=== PATIENT | female | born 1940 | race Caucasian/White ===

== ENCOUNTER 2019-12-22 08:40 | Outpatient (CLI) | payer MEDICARE ==
[~2019-12-22 08:40] MED LIST: ANAS1TAB49 PO; CHOL400T57 PO; COQ10; DULO60CA45 PO; LEVO88TA39 PO; NEBI5TAB10 PO; OMEP-50 PO; OSC500T PO; SIMV10TA2 PO; TURMERIC; UMEC1DIS INH; VITAMIN C
== END 2019-12-22 23:59 | disposition home or self-care (01) ==
LOC: 64 CT 08:40
PROVIDERS: ATTEND Surgery
DX: K21.9 Gastro-esophageal reflux disease without esophagitis (principal); J98.11 Atelectasis; M41.85 Other forms of scoliosis, thoracolumbar region; M19.012 Primary osteoarthritis, left shoulder; M19.011 Primary osteoarthritis, right shoulder; M47.819 Spondylosis without myelopathy or radiculopathy, site unspecified; M95.4 Acquired deformity of chest and rib; K76.89 Other specified diseases of liver; I70.0 Atherosclerosis of aorta; I25.10 Atherosclerotic heart disease of native coronary artery without angina pectoris
CPT/HCPCS: 71250; 74220

== ENCOUNTER 2020-08-24 05:34 | Inpatient (IN) | payer MEDICARE ==
[2020-08-15 16:11] LABS: BASOPHILS # (AUTO) 0.1 X10'3 (0-0.2); BASOPHILS % (AUTO) 0.9 % (0-1); EOSINOPHILS # (AUTO) 0.1 X10'3 (0-0.9); EOSINOPHILS % (AUTO) 0.8 % (0-6); LYMPHOCYTES # (AUTO) 1.7 X10'3 (1.1-4.8); LYMPHOCYTES % (AUTO) 25.8 % (21-51); MEAN CORPUSCULAR HEMOGLOBIN 31.2 PG (27.0-31.0); MEAN CORPUSCULAR HGB CONC 33.2 g/dL (33.0-36.5); MEAN PLATELET VOLUME 10.3 FL (7.4-10.4); MONOCYTES # (AUTO) 0.8 X10'3 (0-0.9); MONOCYTES % (AUTO) 12.8 % (2-12); NEUTROPHILS # (AUTO) 3.9 X10'3 (1.8-7.7); NEUTROPHILS % (AUTO) 59.7 % (42-75); PRE OP HEMATOCRIT 39.6 % (35.0-45.0); PRE OP HEMOGLOBIN 13.1 g/dL (12.0-16.0); PRE OP PLATELET COUNT 267 X10'3 (140-440); RED BLOOD COUNT 4.21 X10'6 (4.20-5.60); RED CELL DISTRIBUTION WIDTH 14.6 % (11.5-14.5)
[2020-08-15 16:35] LABS: ALBUMIN 3.9 G/DL (3.4-5.0); ALKALINE PHOSPHATASE 66 IU/L (46-116); BLOOD UREA NITROGEN 13 MG/DL (7-18); BUN/CREATININE RATIO 14.9 (6.6-38.0); CHLORIDE 99 MMOL/L (99-107); CREATININE 0.87 MG/DL (0.40-0.90); PRE OP ALT 24 U/L (30-65); PRE OP ANION GAP 6 (8-16); PRE OP AST 26 U/L (10-37); PRE OP BILIRUB, TOTAL 0.5 MG/DL (0.0-1.0); PRE OP GLUCOSE 100 MG/DL (70-104); PRE OP POTASSIUM 4.9 MMOL/L (3.4-5.1); PRE OP SODIUM 135 MMOL/L (135-145); TOTAL CARBON DIOXIDE 29.8 MMOL/L (24-32); TOTAL PROTEIN 7.9 G/DL (6.4-8.2); eGFR 63 ML/MIN
[2020-08-15 17:04] LABS: PRE OP PROTIME 10.7 SECONDS (9.0-12.0)
[~2020-08-24] VITALS: Ht 160 cm; Wt 63.7 kg
[2020-08-24] VITALS (16 sets, daily range): BP systolic 111–156; BP diastolic 55–82
[~2020-08-24 05:34] MED LIST changes: +DOCUMENT DATE & TIME OF BETA-BLOCKER PO ONE; -OMEP-50 PO; +OMEP20TA5 PO; +VANCOMYCIN INJ 1000 MG in NORMAL SALINE 250ml IV.SOLN IV ONE; +albuterol 2.5 MG/3 ML nebule NEB ONE; +cefazolin/dext.iso 2gm/100ml IV ONE; +famotidine 20mg tablet PO ONE; +tranexamic acid 1gm/0.7% sal. 100 ML IV ONE
[2020-08-24] MEDS ORDERED: cloNIDine hcl/PF 100mcg/ml inj ONE (06:38)
[2020-08-24] MEDS ORDERED: ROPIVAcaine 0.5% (5mg/ml) 30ml vial ONE ×2 (06:38→10:06)
[2020-08-24] MEDS ORDERED: ketorolac trometh. 30mg/ml inj. ONE (06:38)
[2020-08-24] MEDS ORDERED: LIDOcaine 1% (10mg/ml) 2ml vial ONE (06:41)
[2020-08-24] MEDS: ringers solution, lacted 1,000 ML IV SCH ×3 (06:46→12:11)
[2020-08-24] MEDS ORDERED: fentaNYL/PF 50MCG/1 ML 2ML syringe ONE (07:14)
[2020-08-24] MEDS ORDERED: MIDAZolam 1 MG/ML 5ML VIAL ONE (07:14)
[2020-08-24] MEDS ORDERED: ondansetron/PF 4mg/2ml inj IV PRN ×2 (08:55→10:30)
[2020-08-24] MEDS ORDERED: morphine 4 MG/ML inj SYRINge IV PRN (08:55)
[2020-08-24] MEDS ORDERED: ringers solution, lacted 1,000 ML IV SCH (08:55)
[2020-08-24] MEDS ORDERED: proCHLORperazine 10 MG/2 ml inj IV PRN (08:55)
[2020-08-24] MEDS ORDERED: morphine 2 MG/ML inj. syringe IV PRN (08:55)
[2020-08-24] MEDS ORDERED: meperidine/PF 25mg/ml syringe IV PRN ×3 (08:55)
--- NOTE | 2020-08-24 10:26 | NUR ---
Received from OR via ortho bed, accompanied by Anesthesiologist Roslyn and report given by Anesthesiolgist. Pt responsive to questions and awake, no pain, VS WNL with NC at 2L. Right knee wrapped and cold pack in place, distal pulses palpable. 20G right wrist 100cc/hr IVF LR. SCDs in place, reic catheter draining clear yellow fluid.
[2020-08-24] MEDS ORDERED: bisacodyl 10mg suppository rectal RC PRN (10:30)
[2020-08-24] MEDS ORDERED: acetaminophen 325mg tablet PO PRN (10:30)
[2020-08-24] MEDS ORDERED: magnesium hydroxide 30ml (MOM) UD suspension PO PRN (10:30)
[2020-08-24] MEDS ORDERED: diphenhydrAMINE 25mg capsule PO PRN ×2 (10:30)
[2020-08-24] MEDS ORDERED: HYDROmorphone inj. 0.5 MG/0.5 ML DISP.SYRIN IV PRN (10:30)
--- NOTE | 2020-08-24 11:01 | NUR ---
received report from soila montero
--- NOTE | 2020-08-24 11:16 | NUR ---
Report called to receiving nurse. Transferred via ortho bed to room 4011A. Belongings went home with patient's family memeber. Special Issues communicated to receiving nurse Jasmin RN at bedside. Chart at bedside, BLL call light within reach. Pt moving legs but cannot yet move toes, still states she has no pain.
[2020-08-24] MEDS: HYDROcodone/acetaminophen 10/325mg tab PO PRN ×2 (14:56→19:56)
[2020-08-24] MEDS: ceFAZolin/D5W- 1GM premix 50 ML IV SCH ×2 (16:19→23:51)
--- NOTE | 2020-08-24 18:17 | NUR ---
gave report to soila kirk
[2020-08-24] MEDS: pantoprazole 40mg Tablet.DR PO SCH (19:56)
[2020-08-24] MEDS: metoprolol tartrate 25mg tablet PO SCH (19:58)
[2020-08-24] MEDS ORDERED: vancomycin/NS 1 GM ADD-VANTAGE 250 ML IV SCH (20:00)
[2020-08-24] MEDS ORDERED: aspirin 325mg tablet PO SCH (20:00)
[2020-08-24] MEDS: aspirin 81mg tablet.DR PO SCH (20:07)
[2020-08-24] MEDS: potassium Cl 20mEq in NS 1,000 ML IV SCH ×2 (20:20→23:50)
[2020-08-24] MEDS ORDERED: sennosides 8.6mg tablet PO SCH (21:00)
[2020-08-25] MEDS: HYDROcodone/acetaminophen 10/325mg tab PO PRN ×2 (05:43→06:52)
[2020-08-25 06:00] VITALS: BP 117/60
--- NOTE | 2020-08-25 06:47 | NUR ---
Patient in room ORTHO 4011. I have received report from Neelam and had the opportunity to ask questions and assume patient care.
[2020-08-25] MEDS: aspirin 81mg tablet.DR PO SCH (07:12)
[2020-08-25] MEDS: pantoprazole 40mg Tablet.DR PO SCH (07:12)
[2020-08-25 07:15] LABS: ALANINE AMINOTRANSFERASE 16 U/L (12-78); ALBUMIN 2.6 G/DL (3.4-5.0); ALBUMIN/GLOBULIN RATIO 0.8 (1.1-1.5); ALKALINE PHOSPHATASE 48 IU/L (46-116); ANION GAP 10 (8-16); BILIRUBIN,TOTAL 0.7 MG/DL (0.1-1.0); BLOOD UREA NITROGEN 15 MG/DL (7-18); BUN/CREATININE RATIO 19.7 (6.6-38.0); CALCIUM 8.5 MG/DL (8.5-10.1); CHLORIDE 103 MMOL/L (99-107); CREATININE 0.76 MG/DL (0.40-0.90); GLUCOSE 115 MG/DL (70-104); SODIUM 136 MMOL/L (135-145); TOTAL CARBON DIOXIDE 23.1 MMOL/L (24-32); TOTAL PROTEIN 5.8 G/DL (6.4-8.2); eGFR 73 ML/MIN
[2020-08-25] MEDS: metoprolol tartrate 25mg tablet PO SCH (07:16)
[2020-08-25 07:25] LABS: ASPARTATE AMINO TRANSFERASE 27 U/L (10-37)
[2020-08-25 07:26] LABS: POTASSIUM 5.1 MMOL/L (3.5-5.1)
[2020-08-25 07:54] LABS: BASOPHILS % (AUTO) 0.1 % (0-1); EOSINOPHILS % (AUTO) 0 % (0-6); HEMATOCRIT 27.9 % (35.0-45.0); HEMOGLOBIN 9.3 g/dl (12.0-16.0); LYMPHOCYTES % (AUTO) 9.7 % (21-51); MEAN CORPUSCULAR HEMOGLOBIN 31.2 PG (27.0-31.0); MEAN CORPUSCULAR HGB CONC 33.2 g/dL (33.0-36.5); MEAN PLATELET VOLUME 9.2 FL (7.4-10.4); MONOCYTES # (AUTO) 1.1 X10'3 (0-0.9); MONOCYTES % (AUTO) 11.2 % (2-12); NEUTROPHILS # (AUTO) 7.9 X10'3 (1.8-7.7); PLATELET COUNT 187 X10'3 (140-440); RED BLOOD COUNT 2.97 X10'6 (4.20-5.60); RED CELL DISTRIBUTION WIDTH 14.1 % (11.5-14.5)
[2020-08-25] MEDS ORDERED: anastrozole 1 MG tablet PO SCH (08:00)
[2020-08-25] MEDS ORDERED: duloxetine 30mg CAPSULE.DR PO SCH (08:00)
[2020-08-25] MEDS ORDERED: levoTHYROXINE 88mcg tablet PO SCH (08:00)
[2020-08-25] MEDS ORDERED: VILANTEROL TR IH SCH (08:00)
[2020-08-25] MEDS ORDERED: UMECLIDINIUM BRM IH SCH (08:00)
[2020-08-25 10:00] VITALS: BP 104/45
[2020-08-25] MEDS ORDERED: HYDR-3972 PO (12:02)
[2020-08-25] MEDS ORDERED: SENN-173 PO (12:02)
[2020-08-25] MEDS: potassium Cl 20mEq in NS 1,000 ML IV SCH (12:10)
[2020-08-25] MEDS ORDERED: ASPI-1071 PO (12:36)
--- NOTE | 2020-08-25 13:36 | NUR ---
Removed IV with cannula intact, patient discharged with family member. patient was given all discharge information and patient education. Patient was able to verbalize back all education and discharge information. Patient left facility with all patient belongs. Patient was discharged home with family. [facility] staff wheeled patient down in wheelchair to lobby. Patient left hospital in family private vehicle. All needs were met and patient was comfortable.
== END 2020-08-25 13:05 | disposition home or self-care (01) | DRG 470 ==
LOC: PAS 05:34 → ORTHO 4S 11:59 → PAS 12:00 → ORTHO 4S 12:00
PROVIDERS: ADMIT Orthopaedic Surgery; ATTEND Orthopaedic Surgery
PROC: 3E0T3BZ Introduction of Anesthetic Agent into Peripheral Nerves and Plexi, Percutaneous Approach (ICD-10-PCS; 2020-08-24)
PROC: 3E0T33Z Introduction of Anti-inflammatory into Peripheral Nerves and Plexi, Percutaneous Approach (ICD-10-PCS; 2020-08-24)
PROC: 0SRC0J9 Replacement of Right Knee Joint with Synthetic Substitute, Cemented, Open Approach (ICD-10-PCS; principal; 2020-08-24 07:05)
DX: M17.11 Unilateral primary osteoarthritis, right knee (principal); Z79.899 Other long term (current) drug therapy; D64.9 Anemia, unspecified
CPT/HCPCS: 36415; 71046; 73560; 80053; 82948; 84443; 85025; 85610; 85730; 86885; 86900; 86901; 86920; 87081; 93005; 97116; 97162; 97530; A4615; A6455; A7000; C1713; C1758; C1776; G0378; J0690; J0735; J1885; J2001; J2250; J2795; J3010; J3370; J3480; J7120

== ENCOUNTER 2024-07-20 11:59 | Inpatient (IN) | payer MEDICARE ==
[2024-07-20] VITALS (8 sets, daily range): BP systolic 135–143; BP diastolic 62–67; PULSE 82–106; RESP 16–48; TEMP 97.8–98.3; O2SAT 91–96
[~2024-07-20] VITALS: Ht 160 cm; Wt 56.0 kg
[~2024-07-20 11:59] MED LIST changes: +ASPI-1071 PO; -CHOL400T57 PO; -COQ10; -DOCUMENT DATE & TIME OF BETA-BLOCKER PO ONE; -DULO60CA45 PO; +DULO60CA60 PO; +HYDR-3972 PO; -NEBI5TAB10 PO; +NEBI5TAB9 PO; +OMEP20TA43 PO; -OMEP20TA5 PO; -OSC500T PO; +SENN-362 PO; -SIMV10TA2 PO; -TURMERIC; -VANCOMYCIN INJ 1000 MG in NORMAL SALINE 250ml IV.SOLN IV ONE; -VITAMIN C; -albuterol 2.5 MG/3 ML nebule NEB ONE; -cefazolin/dext.iso 2gm/100ml IV ONE; -famotidine 20mg tablet PO ONE; -tranexamic acid 1gm/0.7% sal. 100 ML IV ONE
[2024-07-20 12:24] LABS: BASOPHILS % (AUTO) 0.1 % (0-1); EOSINOPHILS % (AUTO) 0 % (0-6); HEMATOCRIT 42.1 % (35.0-45.0); HEMOGLOBIN 13.9 g/dl (12.0-16.0); LYMPHOCYTES # (AUTO) 0.9 X10'3 (1.1-4.8); LYMPHOCYTES % (AUTO) 15.3 % (21-51); MEAN CORPUSCULAR HEMOGLOBIN 30.3 PG (27.0-31.0); MEAN CORPUSCULAR HGB CONC 33.1 g/dL (33.0-36.5); MEAN CORPUSCULAR VOLUME 91.8 FL (78-98); MONOCYTES # (AUTO) 0.9 X10'3 (0-0.9); MONOCYTES % (AUTO) 15.5 % (2-12); NEUTROPHILS % (AUTO) 69.1 % (42-75); PLATELET COUNT 235 X10'3 (140-440); RED BLOOD COUNT 4.59 X10'6 (4.20-5.60); RED CELL DISTRIBUTION WIDTH 13.9 % (11.5-14.5); WHITE BLOOD COUNT 5.9 X10'3 (4.5-11.0)
[2024-07-20] MEDS: methylPREDNISolone sod succ 125mg/2ml vial IV ONE (12:56)
[2024-07-20] MEDS: CefTRIAXone/D5W-Rocephin 1gm 50 ML IV ONE (12:56)
[2024-07-20 12:58] LABS: ALBUMIN 3.6 G/DL (3.4-5.0); ANION GAP 7 (8-16); BLOOD UREA NITROGEN 16 MG/DL (7-18); BUN/CREATININE RATIO 24.2 (10.0-20.0); CALCIUM 9.1 MG/DL (8.5-10.1); CHLORIDE 89 MMOL/L (99-107); CREATININE 0.66 MG/DL (0.40-0.90); GLUCOSE 114 MG/DL (70-104); PRO BRAIN NATRIURETIC PEPTIDE 1622 PG/ML (0-450); SODIUM 124 MMOL/L (135-145); TOTAL CARBON DIOXIDE 28.5 MMOL/L (24-32); eCRCL 52 ML/MIN; eGFR 85 ML/MIN
[2024-07-20] MEDS: albuterol 2.5 MG/3 ML nebule CONTNEB PRN (13:11)
[2024-07-20 13:31] LABS: PLATELET ESTIMATE NORMAL; TOTAL CELLS COUNTED 100
[2024-07-20] MEDS ORDERED: bisacodyl 10mg suppository rectal RC PRN (14:00)
[2024-07-20] MEDS ORDERED: ondansetron/PF 4mg/2ml inj IV PRN (14:00)
[2024-07-20] MEDS ORDERED: HYDROmorphone inj. 0.5 MG/0.5 ML DISP.SYRIN IV PRN (14:00)
[2024-07-20] MEDS: methylPREDNISolone sod succ/PF 40mg inj. IV SCH (14:00)
[2024-07-20] MEDS ORDERED: morphine 2 MG/ML inj. syringe IV PRN (14:00)
[2024-07-20] MEDS ORDERED: magnesium sulf-water 2g/50mL 50 ML IV PRN (14:00)
[2024-07-20] MEDS ORDERED: magnesium Cl slow-release 64mg tablet PO PRN (14:00)
[2024-07-20] MEDS ORDERED: albuterol 2.5 MG/3 ML nebule NEB PRN (14:00)
[2024-07-20] MEDS ORDERED: HYDROcodone/acetaminophen 5mg/325mg tablet PO PRN (14:00)
[2024-07-20] MEDS ORDERED: mag hydrox/Alum hydrox/simeth 30ml oral suspension PO PRN (14:00)
[2024-07-20] MEDS ORDERED: acetaminophen 325mg tablet PO PRN (14:00)
[2024-07-20] MEDS ORDERED: potassium Cl 20 mEq SR tablet PO PRN ×2 (14:00)
[2024-07-20] MEDS ORDERED: magnesium sulf-water 4G/100mL 100 ML IV PRN (14:00)
[2024-07-20] MEDS ORDERED: potassium Cl 40MEQ/1/2NS 520ml 520 ML IV PRN (14:00)
[2024-07-20] MEDS ORDERED: magnesium hydroxide 30ml (MOM) UD suspension PO PRN (14:00)
[2024-07-20] MEDS ORDERED: CHOL100046 PO (14:05)
[2024-07-20] MEDS ORDERED: ASCO500C17 PO (14:05)
[2024-07-20] MEDS ORDERED: OSC500T PO (14:05)
[2024-07-20] MEDS ORDERED: SIMV10TA98 PO (14:05)
[2024-07-20] MEDS ORDERED: LEVO88TA7 PO (14:05)
[2024-07-20 14:34] LABS: APTT 29 SECONDS (22-32); PROTHROMBIN TIME 10.5 SECONDS (9.0-12.0)
[2024-07-20 14:41] LABS: ABG HCO3 22.4 mmol/L (21.0-28.0); ABG OXYGEN SATURATION 94.5 % (94.0-98.0); ABG PCO2 (T) 33.3 mmHg (32.0-45.0); ABG PH (T) 7.445 (7.350-7.450); ABG PO2 (T) 70.4 mmHg (83.0-108.0); ALLEN'S TEST POSITIVE; FCOHb 0.3 % (0.5-1.5); FHHb 5.5 % (0.0-5.0); FLOW 3 L/min; FO2Hb 94.2 % (94.0-98.0); MODE NASAL CANNULA; TOTAL HEMOGLOBIN 13.5 G/dl (12.0-16.0)
[2024-07-20] MEDS: furosemide 10 MG/1 ML 10ml inj IV SCH (14:42)
[2024-07-20 15:31] LABS: HEMOGLOBIN A1C 6.2 % (4.5-6.2)
[2024-07-20] MEDS ORDERED: CefTRIAXone/D5W-Rocephin 1gm 50 ML IV SCH (16:50)
[2024-07-20 17:32] LABS: OSMOLALITY 274 MOSM/K (280-300)
[2024-07-20] MEDS: K and/or MAG REPLACEMENT MC SCH (20:00)
[2024-07-20] MEDS: ipratropium/albuterol 3ml nebule NEB PRN (21:07)
[2024-07-20] MEDS: calcium carbonate 500mg tablet PO SCH (21:46)
[2024-07-20] MEDS: heparin, porcine 5000 units/ml vial SQ SCH (21:46)
[2024-07-20] MEDS: simvastatin 20mg tablet PO SCH (21:46)
[2024-07-20] MEDS: docusate sod 100mg capsule PO SCH (21:46)
[2024-07-20] MEDS: metoprolol tartrate 25mg tablet PO SCH (21:47)
[2024-07-21] VITALS (8 sets, daily range): BP systolic 103–147; BP diastolic 59–82; PULSE 79–92; RESP 16–20; TEMP 97.5–98.7; O2SAT 93–99
[2024-07-21 05:12] LABS: BASOPHILS % (AUTO) 0.3 % (0-1); EOSINOPHILS % (AUTO) 0 % (0-6); HEMATOCRIT 39.5 % (35.0-45.0); HEMOGLOBIN 12.9 g/dl (12.0-16.0); LYMPHOCYTES # (AUTO) 0.8 X10'3 (1.1-4.8); LYMPHOCYTES % (AUTO) 17.2 % (21-51); MEAN CORPUSCULAR HEMOGLOBIN 29.9 PG (27.0-31.0); MEAN CORPUSCULAR HGB CONC 32.7 g/dL (33.0-36.5); MEAN CORPUSCULAR VOLUME 91.6 FL (78-98); MEAN PLATELET VOLUME 9.1 FL (7.4-10.4); MONOCYTES # (AUTO) 0.4 X10'3 (0-0.9); MONOCYTES % (AUTO) 8.1 % (2-12); NEUTROPHILS # (AUTO) 3.6 X10'3 (1.8-7.7); NEUTROPHILS % (AUTO) 74.4 % (42-75); PLATELET COUNT 222 X10'3 (140-440); RED BLOOD COUNT 4.32 X10'6 (4.20-5.60); RED CELL DISTRIBUTION WIDTH 13.8 % (11.5-14.5); WHITE BLOOD COUNT 4.8 X10'3 (4.5-11.0)
[2024-07-21 05:28] LABS: ALANINE AMINOTRANSFERASE 16 U/L (12-78); ALBUMIN 3.3 G/DL (3.4-5.0); ALBUMIN/GLOBULIN RATIO 0.8 (1.1-1.5); ALKALINE PHOSPHATASE 55 IU/L (46-116); ANION GAP 3 (8-16); ASPARTATE AMINO TRANSFERASE 21 U/L (10-37); BILIRUBIN,TOTAL 0.5 MG/DL (0.1-1.0); BLOOD UREA NITROGEN 16 MG/DL (7-18); BUN/CREATININE RATIO 29.1 (10.0-20.0); CALCIUM 9.3 MG/DL (8.5-10.1); CHLORIDE 94 MMOL/L (99-107); CHOL/HDL RATIO 1.7 (0.00-4.99); CHOLESTEROL 166 MG/DL (0-200); CREATININE 0.55 MG/DL (0.40-0.90); GLUCOSE 145 MG/DL (70-104); HDL CHOLESTEROL 95 MG/DL (35-60); LDL CHOLESTEROL 61 MG/DL (50-100); POTASSIUM 5.1 MMOL/L (3.5-5.1); SODIUM 129 MMOL/L (135-145); TOTAL PROTEIN 7.4 G/DL (6.4-8.2); TRIGLYCERIDES 39 MG/DL (20-135); eCRCL 63 ML/MIN; eGFR > 90 ML/MIN
[2024-07-21] MEDS: VILANTEROL TR IH SCH (08:00)
[2024-07-21] MEDS: UMECLIDINIUM BRM IH SCH (08:00)
[2024-07-21] MEDS: CefTRIAXone/D5W-Rocephin 1gm 50 ML IV SCH (09:39)
[2024-07-21] MEDS: cholecalciferol (vitamin D3) 1,000 unit (25mcg) tablet PO SCH (09:42)
[2024-07-21] MEDS: pantoprazole 40mg Tablet.DR PO SCH (09:47)
[2024-07-21] MEDS: anastrozole 1 MG tablet PO SCH (09:48)
[2024-07-21] MEDS: duloxetine 30mg CAPSULE.DR PO SCH (09:49)
[2024-07-21] MEDS: levoTHYROXINE 88mcg tablet PO SCH (10:03)
[2024-07-21] MEDS: ascorbic acid 500mg tablet PO SCH (10:06)
[2024-07-21] MEDS ORDERED: iohexol 350MG/ML 100ml bottle IV ONE (14:19)
[2024-07-21] MEDS: methylPREDNISolone sod succ/PF 40mg inj. IV SCH (20:14)
[2024-07-22] VITALS (9 sets, daily range): BP systolic 113–129; BP diastolic 58–82; PULSE 66–77; RESP 14–20; TEMP 97.6–99.3; O2SAT 93–100
[2024-07-22 05:23] LABS: BASOPHILS % (AUTO) 0.1 % (0-1); EOSINOPHILS % (AUTO) 0 % (0-6); HEMATOCRIT 38.2 % (35.0-45.0); HEMOGLOBIN 12.7 g/dl (12.0-16.0); LYMPHOCYTES # (AUTO) 1.1 X10'3 (1.1-4.8); LYMPHOCYTES % (AUTO) 6.6 % (21-51); MEAN CORPUSCULAR HEMOGLOBIN 30.4 PG (27.0-31.0); MEAN CORPUSCULAR HGB CONC 33.4 g/dL (33.0-36.5); MEAN CORPUSCULAR VOLUME 91.3 FL (78-98); MEAN PLATELET VOLUME 9.4 FL (7.4-10.4); MONOCYTES # (AUTO) 1.2 X10'3 (0-0.9); MONOCYTES % (AUTO) 7.4 % (2-12); NEUTROPHILS # (AUTO) 14.5 X10'3 (1.8-7.7); NEUTROPHILS % (AUTO) 85.9 % (42-75); PLATELET COUNT 232 X10'3 (140-440); RED BLOOD COUNT 4.18 X10'6 (4.20-5.60); RED CELL DISTRIBUTION WIDTH 13.9 % (11.5-14.5); WHITE BLOOD COUNT 16.9 X10'3 (4.5-11.0)
[2024-07-22 05:44] LABS: ALANINE AMINOTRANSFERASE 20 U/L (12-78); ALBUMIN 3.1 G/DL (3.4-5.0); ALBUMIN/GLOBULIN RATIO 0.8 (1.1-1.5); ALKALINE PHOSPHATASE 52 IU/L (46-116); ANION GAP 5 (8-16); ASPARTATE AMINO TRANSFERASE 23 U/L (10-37); BILIRUBIN,TOTAL 0.3 MG/DL (0.1-1.0); BLOOD UREA NITROGEN 29 MG/DL (7-18); BUN/CREATININE RATIO 39.7 (10.0-20.0); CALCIUM 9.5 MG/DL (8.5-10.1); CHLORIDE 94 MMOL/L (99-107); CREATININE 0.73 MG/DL (0.40-0.90); GLUCOSE 133 MG/DL (70-104); POTASSIUM 4.7 MMOL/L (3.5-5.1); SODIUM 131 MMOL/L (135-145); TOTAL CARBON DIOXIDE 32.5 MMOL/L (24-32); TOTAL PROTEIN 6.9 G/DL (6.4-8.2); eCRCL 47 ML/MIN; eGFR 76 ML/MIN
[2024-07-22] MEDS: guaiFENesin ER 600mg tablet PO SCH (13:00)
[2024-07-22 18:01] LABS: BILIRUBIN,URINE NEGATIVE (Neg); CLARITY,URINE CLEAR (Clear); COLOR,URINE YELLOW (Yellow); GLUCOSE, URINE NEGATIVE (Neg); KETONES,URINE NEGATIVE (Neg); LEUKOCYTE ESTERASE ,URINE NEGATIVE (Neg); NITRITES, URINE NEGATIVE (Neg); OCCULT BLOOD,URINE NEGATIVE (Neg); PROTEIN,URINE NEGATIVE (Neg); UROBILINOGEN,URINE 0.2 E.U/dL (0.2-1.0)
[2024-07-22 18:04] LABS: UA COLLECTION TYPE CLN CATCH MIDSTREAM
[2024-07-22] MEDS: furosemide 20 MG/2 ML vial IV ONE (20:54)
[2024-07-23 05:05] LABS: BASOPHILS % (AUTO) 0.1 % (0-1); EOSINOPHILS % (AUTO) 0 % (0-6); HEMATOCRIT 39.3 % (35.0-45.0); LYMPHOCYTES # (AUTO) 0.8 X10'3 (1.1-4.8); LYMPHOCYTES % (AUTO) 7.4 % (21-51); MEAN CORPUSCULAR HEMOGLOBIN 30.3 PG (27.0-31.0); MEAN CORPUSCULAR HGB CONC 33.1 g/dL (33.0-36.5); MEAN CORPUSCULAR VOLUME 91.5 FL (78-98); MEAN PLATELET VOLUME 9.6 FL (7.4-10.4); MONOCYTES # (AUTO) 0.5 X10'3 (0-0.9); MONOCYTES % (AUTO) 4.4 % (2-12); NEUTROPHILS # (AUTO) 9.6 X10'3 (1.8-7.7); NEUTROPHILS % (AUTO) 88.1 % (42-75); PLATELET COUNT 259 X10'3 (140-440); WHITE BLOOD COUNT 10.9 X10'3 (4.5-11.0)
[2024-07-23 05:30] LABS: ALANINE AMINOTRANSFERASE 26 U/L (12-78); ALBUMIN/GLOBULIN RATIO 0.9 (1.1-1.5); ALKALINE PHOSPHATASE 49 IU/L (46-116); ANION GAP 3 (8-16); ASPARTATE AMINO TRANSFERASE 24 U/L (10-37); BILIRUBIN,TOTAL 0.4 MG/DL (0.1-1.0); BLOOD UREA NITROGEN 30 MG/DL (7-18); BUN/CREATININE RATIO 37.5 (10.0-20.0); CHLORIDE 96 MMOL/L (99-107); GLUCOSE 141 MG/DL (70-104); MAGNESIUM 2.1 MG/DL (1.5-2.4); POTASSIUM 4.6 MMOL/L (3.5-5.1); SODIUM 132 MMOL/L (135-145); THYROID STIMULATING HORMONE 0.05 ulU/ml (0.34-4.50); TOTAL CARBON DIOXIDE 33.3 MMOL/L (24-32); TOTAL PROTEIN 6.3 G/DL (6.4-8.2); eCRCL 43 ML/MIN; eGFR 68 ML/MIN
[2024-07-23 06:00] VITALS: BP 129/65; PULSE 70; RESP 14; TEMP 97.4; O2SAT 97
[2024-07-23 08:00] VITALS: RESP 18; O2SAT 97
[2024-07-23 08:28] LABS: FREE T4 (FREE THYROXINE) 1.04 NG/DL (0.73-1.40)
[2024-07-23 10:00] VITALS: BP 124/72; PULSE 71; RESP 18; TEMP 97.9; O2SAT 96
[2024-07-23] MEDS ORDERED: GUAI600T45 PO (10:49)
[2024-07-23 11:06] VITALS: O2SAT 97
[2024-07-23] MEDS ORDERED: FURO20TA4 PO (11:15)
[2024-07-23] MEDS ORDERED: ALBU8HFA INH (11:15)
== END 2024-07-23 13:30 | disposition home health service (06) | DRG 291 ==
LOC: ER 12:00 → ED HOLD 14:10 → SUR 3N 16:25
PROVIDERS: ADMIT Internal Medicine; ATTEND Internal Medicine
PROC: B32T1ZZ Computerized Tomography (CT Scan) of Left Pulmonary Artery using Low Osmolar Contrast (ICD-10-PCS; principal; 2024-07-21)
PROC: B3201ZZ Computerized Tomography (CT Scan) of Thoracic Aorta using Low Osmolar Contrast (ICD-10-PCS; 2024-07-21)
PROC: B32S1ZZ Computerized Tomography (CT Scan) of Right Pulmonary Artery using Low Osmolar Contrast (ICD-10-PCS; 2024-07-21)
DX: I11.0 Hypertensive heart disease with heart failure (principal); I50.33 Acute on chronic diastolic (congestive) heart failure; J96.21 Acute and chronic respiratory failure with hypoxia; E87.1 Hypo-osmolality and hyponatremia; J44.1 Chronic obstructive pulmonary disease with (acute) exacerbation; Z20.822 Contact with and (suspected) exposure to COVID-19; E78.5 Hyperlipidemia, unspecified; I73.00 Raynaud's syndrome without gangrene; R73.9 Hyperglycemia, unspecified; E03.9 Hypothyroidism, unspecified; Z85.3 Personal history of malignant neoplasm of breast; Z99.81 Dependence on supplemental oxygen; Z79.899 Other long term (current) drug therapy; Z90.710 Acquired absence of both cervix and uterus
CPT/HCPCS: 36415; 36600; 71045; 71275; 80048; 80053; 80061; 81003; 82803; 83036; 83605; 83735; 83880; 83930; 83935; 84145; 84439; 84443; 84484; 85007; 85018; 85025; 85610; 85730; 87070; 87081; 87502; 87503; 87811; 93005; 93306; 94640; 94760; 96365; 96366; 96375; 96376; 97116; 97161; 97530; 99285; A4615; A7015; G0378; J0696; J1644; J1940; J2919; Q9967